=== PATIENT | male | born 1960 | race American Indian/Alaskan Native ===

== ENCOUNTER 2017-11-05 13:18 | Inpatient (IN) | payer OTHER ==
[2017-11-05] MEDS ORDERED: ASPIRIN PO ONE (13:43)
[2017-11-05 14:53] LABS: Hematocrit 52.2 % (35.5-45.6); Hemoglobin 17.4 gm/dl (11.8-15.2); Mean Corpuscular HGB Conc 33 % (32-34); Mean Corpuscular Hemoglobin 30 pg (28-32); Mean Corpuscular Volume 91 fl (84-94); Platelet Count 146 K/mm3 (140-440); Red Blood Count 5.73 M/mm3 (3.65-5.03); Red Cell Distribution Width 14.9 % (13.2-15.2)
[2017-11-05 15:51] LABS: BUN/Creatinine Ratio 21; Blood Urea Nitrogen 17 mg/dL (9-20); Calcium 9.7 mg/dL (8.4-10.2); Hemolysis Index 15
[2017-11-05 16:26] LABS: Basophils % (Manual) 0 % (0.0-1.8); Eosinophils % (Manual) 0 % (0.0-4.3); RBC Morphology Normal; Total Cells Counted 100
[2017-11-05 16:27] LABS: Platelet Clumps 1+
--- NOTE | 2017-11-05 17:38 | Emergency Department Report ---
ED Chest Pain HPI - General Chief Complaint: Chest Pain Stated Complaint: CHEST WALL AND ABD PAIN Time Seen by Provider: 11/05/17 17:31 Source: patient Mode of arrival: Ambulatory Limitations: No Limitations - History of Present Illness Initial Comments: 57-year-old male complains of chest pain abdominal pain and back pain. He states he's had this intermittently for quite some time but it has gotten worse. He complains of dyspnea on exertion but not at rest. He states that he is constantly draining from his sinuses since he had a frontal incisor tooth extraction years ago. He states he was at this facility 2 years ago and had a complaint of chest pain. He states at that time he was encouraged to seek dental care. Subsequent to that he had the tooth extraction site [place]. He denies ever going to a physician for chest pain symptoms. He describes his pain as intermittent and achy. It is not pleuritic in nature. He does not refer nausea vomiting or diaphoresis. He states that it radiates to the left shoulder. He also refers at least 20 pounds of weight loss since the last time he weighed himself. MD Complaint: chest pain -: Gradual Onset: during rest Pain Location: substernal, left chest Pain Radiation: LUE Severity: moderate Quality: aching Consistency: intermittent Improves With: nothing Worsens With: nothing re: dyspnea, other (somehow associates this chest pain with his sinus drainage) Other Symptoms: other (sinus drainage as above) Aspirin use within the Past 7 Days: (0) No - Related Data Previous Rx's Medication Instructions Recorded Last Taken Type Clindamycin [Clindamycin CAP] 300 mg PO Q8H #20 cap 11/08/14 Unknown Rx HYDROcodone/APAP 5-325 [[place] 1 each PO Q6HR PRN #20 tablet 11/08/14 Unknown Rx 5/325] Allergies Allergy/AdvReac Type Severity Reaction Status Date / Time shrimp Allergy Hives Verified 11/05/17 13:39 Heart Score - HEART Score History: Slightly suspicious EKG: Significant ST-depression Age: 45-65 Risk factors: > 3 risk factors or hx of atherosclerotic disease Troponin: < normal limit HEART Score: 5 - Critical Actions Critical Actions: 4-6 pts:12-16.6% risk of adverse cardiac event. Should be admitted ED Review of Systems ROS: Stated complaint: CHEST WALL AND ABD PAIN Other details as noted in HPI Constitutional: other (weight loss). denies: chills, fever Eyes: denies: eye pain, eye discharge, vision change ENT: as per HPI, other. denies: ear pain, throat pain Respiratory: shortness of breath. denies: cough, wheezing Cardiovascular: chest pain. denies: palpitations Endocrine: no symptoms reported Gastrointestinal: abdominal pain. denies: nausea, diarrhea Genitourinary: denies: urgency, dysuria Musculoskeletal: back pain. denies: joint swelling, arthralgia Skin: denies: rash, lesions Neurological: denies: headache, weakness, paresthesias Psychiatric: denies: anxiety, depression Hematological/Lymphatic: denies: easy bleeding, easy bruising ED Past Medical Hx - Past Medical History Previous Medical History?: Yes Hx Seizures: Yes - Surgical History Past Surgical History?: Yes Additional Surgical History: knee pain - Social History Smoking Status: Current Every Day Smoker Substance Use Type: Alcohol - Medications Home Medications: Home Medications Medication Instructions Recorded Confirmed Last Taken Type Clindamycin [Clindamycin CAP] 300 mg PO Q8H #20 cap 11/08/14 Unknown Rx HYDROcodone/APAP 5-325 [[place] 1 each PO Q6HR PRN #20 tablet 11/08/14 Unknown Rx 5/325] ED Physical Exam - General Limitations: No Limitations General appearance: alert, in no apparent distress, cachectic (somewhat) - Head Head exam: Present: atraumatic, normocephalic - Eye Eye exam: Present: normal appearance. Absent: scleral icterus - ENT ENT exam: Present: mucous membranes moist - Neck Neck exam: Present: normal inspection - Respiratory Respiratory exam: Present: normal lung sounds bilaterally. Absent: respiratory distress - Cardiovascular Cardiovascular Exam: Present: regular rate, normal rhythm. Absent: systolic murmur, diastolic murmur, rubs, gallop - GI/Abdominal GI/Abdominal exam: Present: soft, normal bowel sounds. Absent: distended, tenderness, guarding, rebound, rigid - Rectal Rectal exam: Present: deferred - Extremities Exam Extremities exam: Present: normal inspection, normal capillary refill. Absent: tenderness, calf tenderness - Back Exam Back exam: Present: normal inspection - Neurological Exam Neurological exam: Present: alert, oriented X3, CN II-XII intact. Absent: motor sensory deficit - Psychiatric Psychiatric exam: Present: normal affect, normal mood - Skin Skin exam: Present: warm, dry, intact, normal color. Absent: rash ED Course Vital Signs 11/05/17 11/05/17 13:39 17:38 Temperature 98.1 F Pulse Rate 117 H 87 Respiratory 18 18 Rate Blood Pressure 115/92 Blood Pressure 130/97 [Left] O2 Sat by Pulse 97 97 Oximetry - Reevaluation(s) Reevaluation #1: Somewhat cachectic male with chest pain back pain and abdominal pain. He's had weight loss. He has an abnormal EKG. Further workup in the hospital is appropriate. I'm going to order a CT evaluations. Dr. Serrano is informed. Patient is admitted to his service. 11/05/17 18:03 Reevaluation #2: Patient appears to be having foamy postnasal drainage. I have ordered a CT of his head which should cover his sinuses. CT angiogram of the chest abdomen and pelvis is pending. Patient's differential diagnosis is broad considering his weight loss and abnormal EKG as well as his postnasal or GI reflux issue. Further evaluation in the hospital is appropriate. 11/05/17 18:05 VIBHA score - Vibha Score Age > 65: (0) No Aspirin use within the Past 7 Days: (0) No 3 or more CAD Risk Factors: (1) Yes 2 or more Angina events in past 24 hrs: (0) No Known CAD with more than 50% Stenosis: (0) No Elevated Cardiac Markers: (0) No ST Deviation Greater than 0.5mm: (1) Yes VIBHA Score: 2 ED Medical Decision Making - Lab Data Result diagrams: 11/05/17 14:30 11/05/17 14:30 Laboratory Results - last 24 hr 11/05/17 11/05/17 11/05/17 14:30 14:30 16:39 WBC 6.1 RBC 5.73 H Hgb 17.4 H Hct 52.2 H MCV 91 MCH 30 MCHC 33 RDW 14.9 Plt Count 146 [place] % (Auto) [place] Court Reporter Add Manual Diff Complete Total Counted 100 Seg Neuts % (Manual) 59.0 Band Neutrophils % 0 Lymphocytes % (Manual) 24.0 Reactive Lymphs % (Man) 0 Monocytes % (Manual) 17.0 H Eosinophils % (Manual) 0 Basophils % (Manual) 0 Metamyelocytes % 0 Myelocytes % 0 Promyelocytes % 0 Blast Cells % 0 Nucleated RBC % Not Reportable Seg Neutrophils # Man 3.6 Band Neutrophils # 0.0 Lymphocytes # (Manual) 1.5 Abs React Lymphs (Man) 0.0 Monocytes # (Manual) 1.0 H Eosinophils # (Manual) 0.0 Basophils # (Manual) 0.0 Metamyelocytes # 0.0 Myelocytes # 0.0 Promyelocytes # 0.0 Blast Cells # 0.0 WBC Morphology Not Reportable Hypersegmented Neuts Not Reportable Hyposegmented Neuts Not Reportable Hypogranular Neuts Not Reportable Smudge Cells Not Reportable Toxic Granulation Not Reportable Toxic Vacuolation Not Reportable Dohle Bodies Not Reportable Pelger-Huet Anomaly Not Reportable Neel Rods Not Reportable Platelet Estimate Not Reportable Clumped Platelets 1+ Plt Clumps, EDTA Not Reportable Large Platelets Not Reportable Giant Platelets Not Reportable Platelet Satelliting Not Reportable Plt Morphology Comment Not Reportable RBC Morphology Normal Dimorphic RBCs Not Reportable Polychromasia Not Reportable Hypochromasia Not Reportable Poikilocytosis Not Reportable Anisocytosis Not Reportable Microcytosis Not Reportable Macrocytosis Not Reportable Spherocytes Not Reportable Pappenheimer Bodies Not Reportable Sickle Cells Not Reportable Target Cells Not Reportable Tear Drop Cells Not Reportable Ovalocytes Not Reportable Helmet Cells Not Reportable [place] Bodies Not Reportable [place] Rings Not Reportable [place] Cells Not Reportable Bite Cells Not Reportable Crenated Cell Not Reportable Elliptocytes Not Reportable Acanthocytes (Spur) Not Reportable Rouleaux Not Reportable Hemoglobin C Crystals Not Reportable Schistocytes Not Reportable Malaria parasites Not Reportable Kamran Bodies Not Reportable Hem Pathologist Commnt No Sodium 137 Potassium 3.8 Chloride 92.4 L Carbon Dioxide 22 Anion Gap 26 BUN 17 Creatinine 0.8 Estimated GFR > 60 BUN/Creatinine Ratio 21 Glucose 94 Calcium 9.7 Troponin T < 0.010 < 0.010 - EKG Data -: EKG Interpreted by Me EKG shows normal: sinus rhythm, axis Rate: normal - EKG Data Interpretation: other (there is ST depression in the inferior leads. There is a QS in V2 and in aVL. Voltage is consistent with LVH. There is biatrial enlargement./P pulmonale.) - Radiology Data interpreted by me: Chest x-ray shows nothing acute to me. Mediastinum is normal. Critical care attestation.: If time is entered above; I have spent that time in minutes in the direct care of this critically ill patient, excluding procedure time. ED Disposition Clinical Impression: Cachexia, Weight loss Chest pain Qualifiers: Chest pain type: unspecified Qualified Code(s): R07.9 - Chest pain, unspecified Disposition: OP ADMIT IP TO THIS HOSP Is pt being admited?: Yes Does the pt Need Aspirin: Yes Condition: Stable Instructions: Chest Pain (ED) Referrals: PRIMARY CARE, [Primary Care Provider] - 3-5 Days Time of Disposition: 18:08
[2017-11-05] MEDS ORDERED: NACL 0.9% 1000 ML 1,000 ML ONE (18:00)
--- NOTE | 2017-11-05 18:44 | XRay Report ---
FINAL REPORT EXAM: XR CHEST 1V AP HISTORY: cp TECHNIQUE: Frontal portable examination of the chest PRIORS: None FINDINGS: Atherosclerotic change is present in the thoracic aorta. There is degenerative spondylosis of the thoracic spine. There is no visible pulmonary consolidation, pleural effusion, or pneumothorax. Cardiac silhouette size is normal without vascular congestion. Large lung volumes suggest hyperinflation. This may reflect pulmonary emphysema. IMPRESSION: No acute cardiopulmonary disease in the visualized chest
--- NOTE | 2017-11-05 19:30 | Cat Scan Report ---
FINAL REPORT PROCEDURE: CT ANGIO CHEST TECHNIQUE: Computerized axial tomographic angiography of the chest and pulmonary arteries was performed after the IV injection of iodinated nonionic contrast. The image data was postprocessed using maximum intensity projection (MIP) and 2-dimensional multiplanar reformatted (MPR) techniques. The examination is specifically tailored to the evaluation of the pulmonary arteries per clinical request. HISTORY: Short of breath 786.09, chest pain 786.50, chest and abdominal pain COMPARISON: No prior studies are available for comparison. FINDINGS: Heart and pericardium: No pericardial effusion or thickening. Thoracic aorta: No aneurysm or dissection. Pulmonary vasculature: Normal. No pulmonary emboli. Lymph nodes: No enlarged thoracic lymph nodes. Lungs: Normal. Pleural space: No effusion, thickening, or pneumothorax. Musculoskeletal structures: No significant abnormality. Upper abdominal structures: Left adrenal hyperplasia. IMPRESSION: No evidence of pulmonary emboli.
--- NOTE | 2017-11-05 19:43 | Cat Scan Report ---
FINAL REPORT PROCEDURE: CT ANGIO ABDOMEN PELVIS TECHNIQUE: Computerized axial tomographic angiography of the abdomen and pelvis was performed after the IV injection of iodinated nonionic contrast. The image data was postprocessed using 2-dimensional multiplanar reformatted (MPR) and 3-dimensional (MIP and/or volume rendered) techniques. HISTORY: chest and abdominal pain COMPARISON: No prior studies are available for comparison. FINDINGS: Abdominal aorta: Mild atherosclerotic calcification Celiac artery: Normal. Superior mesenteric artery: Normal. Left renal artery: Normal. Right renal artery: Normal. Inferior mesenteric artery: Normal Common iliacs: Normal. External iliacs: Normal. Internal iliacs: Normal. Abdominal and pelvic viscera: There is mild left adrenal hyperplasia. No acute inflammation is seen. No evidence of bowel obstruction or other acute abnormality. There are facet arthritic changes at L5-S1. There is heterotopic or dystrophic calcification projecting anteriorly from the left pubic body Other: None. IMPRESSION: No acute abnormality is identified
--- NOTE | 2017-11-05 21:28 | Event Note ---
Date: 11/05/17 See dictated history and physical in reports .
[2017-11-05] MEDS ORDERED: TYLENOL PO PRN (21:37)
[2017-11-05] MEDS ORDERED: ZOFRAN IV PRN (21:37)
[2017-11-05] MEDS ORDERED: AMBIEN PO PRN (21:37)
[2017-11-05] MEDS ORDERED: PERCOCET 5/325 PO PRN (21:37)
[2017-11-05] MEDS ORDERED: SODIUM CHLORIDE FLUSH SYRINGE 10 ML IV PRN (21:37)
[2017-11-05] MEDS ORDERED: MORPHINE IV PRN (21:37)
--- NOTE | 2017-11-05 21:55 | History and Physical Report ---
CHIEF COMPLAINT: Chest wall pain and abdominal pain. HISTORY OF PRESENT ILLNESS: A 57-year-old -[place] male, very poor historian, with a history of supposed seizures, comes in for chest wall pain and abdominal pain. The patient says that he has shortness of breath on exertion. The patient also states that he has postnasal drainage. Chest pain, intermittent in nature, going on for 1 day, the pain is about 5 on a scale of 1-10, associated with shortness of breath. No diaphoresis, no palpitations. The patient attributes his chest pain to tooth extraction and postnasal drainage. PAST MEDICAL HISTORY: Questionable seizure disorder. PAST SURGICAL HISTORY: Unavailable. SOCIAL HISTORY: Current 1 pack a day smoker. FAMILY HISTORY: Hypertension. CURRENT MEDICATIONS: None. REVIEW OF SYSTEMS: Significant for left-sided chest pain and shortness of breath, some weight loss and postnasal discharge. Otherwise, review of systems is essentially negative. PHYSICAL EXAMINATION: GENERAL: Middle-aged male, looks older than his age. VITAL SIGNS: Blood pressure is 115/92, temperature 98.1, pulse is 117, and respirations are 18. HEENT: Unremarkable. Pupils are equal and reactive. NECK: Supple, no lymphadenopathy, no thyromegaly. LUNGS: Clear to auscultation and percussion. Good air entry. CARDIOVASCULAR: S1, S2 heard. No gallop, no murmur, no rub. Apical impulse in left fifth intercostal space and midclavicular line. ABDOMEN: Soft and benign. No hepatosplenomegaly. No guarding, no rigidity. Hernial orifices are normal. EXTREMITIES: Good pedal pulses. No pedal edema. CENTRAL NERVOUS SYSTEM: Alert and oriented x 4, nonfocal exam. LABORATORY DATA: Significant for white count of 6100, hemoglobin of 17.4 and hematocrit 52.2. Platelet count is 146,000. Chloride is 92, bicarbonate is 22. Sodium is 137, potassium is 3.8, electrolytes are otherwise normal. BUN and creatinine 17 and 0.8. EKG shows normal sinus rhythm, heart rate of 87 per minute. No acute ST-T wave changes, possible LVH by voltage criteria. Chest x-ray looks normal. ____ CT angiogram of the chest looks normal. Head CT looks normal. Chest CT looks normal. ASSESSMENT AND PLAN: 1. Chest pain, rule out myocardial infarction, chest pain protocol. Troponins ordered and Lexiscan ordered. 2. Polycythemia secondary to chronic obstructive pulmonary disease. We will hydrate the patient. The patient may be hypoxic on a chronic basis. We will get an ABG to see if he has ____ CO2 retention. 3. Nicotine dependence. Nicoderm patch initiated. 4. Deep venous thrombosis prophylaxis, heparin 5000 q.12 hours initiated. DISCHARGE PLANNING ISSUES: The patient may be discharged tomorrow after the Lexiscan and ABG. JOB# [id number] VSM/NTS
[2017-11-05] MEDS ORDERED: HABITROL TD SCH (22:00)
[2017-11-05] MEDS ORDERED: NACL 0.9% 1000 ML 1,000 ML IV SCH (22:00)
[2017-11-05] MEDS: BABY ASPIRIN PO SCH (23:27)
[2017-11-05] MEDS: PEPCID PO SCH (23:27)
[2017-11-05] MEDS: SODIUM CHLORIDE FLUSH SYRINGE 10 ML IV SCH (23:31)
[2017-11-06 08:00] LABS: Basophils % (Auto) 0.8 % (0.0-1.8); Eosinophils # (Auto) 0.1 K/mm3 (0.0-0.4); Eosinophils % (Auto) 1.5 % (0.0-4.3); Hematocrit 49.4 % (35.5-45.6); Hemoglobin 16.2 gm/dl (11.8-15.2); Lymphocytes % (Auto) 35.8 % (13.4-35.0); Mean Corpuscular HGB Conc 33 % (32-34); Mean Corpuscular Hemoglobin 30 pg (28-32); Mean Corpuscular Volume 90 fl (84-94); Monocytes # (Auto) 0.8 K/mm3 (0.0-0.8); Monocytes % (Auto) 14.3 % (0.0-7.3); Red Blood Count 5.47 M/mm3 (3.65-5.03); Red Cell Distribution Width 14.2 % (13.2-15.2)
[2017-11-06 08:07] LABS: Platelet Count 142 K/mm3 (140-440)
[2017-11-06 08:37] LABS: Alanine Aminotransferase 20 units/L (7-56); Albumin 3.8 g/dL (3.9-5); BUN/Creatinine Ratio 27; Blood Urea Nitrogen 19 mg/dL (9-20); Calcium 9.4 mg/dL (8.4-10.2); Hemolysis Index 11
[2017-11-06] MEDS ORDERED: LEXISCAN IV ONE (10:40)
[2017-11-06 13:17] VITALS: BP 127/85
[2017-11-06] MEDS: BABY ASPIRIN PO SCH ×2 (14:15→14:17)
[2017-11-06] MEDS: SODIUM CHLORIDE FLUSH SYRINGE 10 ML IV SCH (14:15)
[2017-11-06] MEDS: PEPCID PO SCH (14:15)
--- NOTE | 2017-11-06 14:27 | Discharge Summary ---
Providers - Providers Date of Admission: 11/05/17 17:52 Date of discharge: 11/06/17 Attending physician: RAUL MARTIN Primary care physician: SHANNON CORADO MD Hospitalization Condition: Fair Disposition: DC-01 TO HOME OR SELFCARE Exam - Constitutional Vitals: Temp Pulse Resp BP Pulse Ox 97.9 F 113 H 18 127/85 99 11/06/17 13:16 11/06/17 13:16 11/06/17 13:16 11/06/17 13:16 11/06/17 13:16 Plan Activity: no restrictions Diet: regular Additional Instructions: 1.Follow up with PCP or [facility] in 1 week. Follow up with: PRIMARY CARE, [Primary Care Provider] - 3-5 Days Prescriptions: Famotidine [Pepcid] 20 mg PO BID #30 tablet
--- NOTE | 2017-11-06 20:55 | Treadmill Report ---
INDICATION: Chest pain. ORDERING PHYSICIAN: Dallas Serrano M.D. FINDINGS: There is no scintigraphic evidence of myocardial ischemia. The left ventricle is normal in size and systolic function. The left ventricular ejection fraction is measured at 55% with normal wall motion and wall thickening. CONCLUSION: 1. Normal perfusion scan. 2. Low risk study associated with 1-year cardiovascular event rate of less than 1%. JOB# [id number] MAKEDA/CARLA
== END 2017-11-06 15:54 | disposition home or self-care (01) | DRG 313 ==
LOC: ED 13:18 → 4A 17:52
PROVIDERS: ADMIT Internal Medicine; ATTEND Internal Medicine
DX: R07.9 Chest pain, unspecified (principal); R64 Cachexia; Z68.1 Body mass index [BMI] 19.9 or less, adult; R56.9 Unspecified convulsions; F17.210 Nicotine dependence, cigarettes, uncomplicated; D75.1 Secondary polycythemia; J44.9 Chronic obstructive pulmonary disease, unspecified
CPT/HCPCS: 36415; 70450; 71045; 71275; 74174; 78452; 80048; 80053; 83036; 84484; 85007; 85025; 93005; 93010; 93017; A9502; J2785; J7030; Q9967